=== PATIENT | male | born 1995 | race African-American/Black ===

== ENCOUNTER 2021-03-06 16:34 | Emergency (ER) | payer OTHER ==
[~2021-03-06] VITALS: Ht 170.2 cm; Wt 84.5 kg
[2021-03-06] MEDS ORDERED: IV NORMAL SALINE 1,000ML 1,000 ML IV ONE ×2 (16:45→18:00)
--- NOTE | 2021-03-06 16:52 | EKG ---
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
[2021-03-06] MEDS ORDERED: NEOMY/BACITR/POLYMYXIN OINT PACKET. TP ONE (17:15)
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
[2021-03-06 17:31] LABS: BASO % 0 % (0-3); EOS # 0.1 x10^3/uL (0.0-0.7); EOS % 1 % (0-3); HEMATOCRIT 40.8 % (39.0-53.0); HEMOGLOBIN 13.4 g/dL (13.0-17.5); LYMPH % 9 % (24-48); MEAN CORPUSCULAR HEMOGLOBIN 29 pg (25-35); MEAN CORPUSCULAR HGB CONC 33 g/dL (31-37); MEAN CORPUSCULAR VOLUME 88 fL (79-100); MONO # 0.6 x10^3/uL (0.0-1.1); MONO % 5 % (0-9); NEUT # 10.4 x10^3uL (1.8-7.7); NEUT % 86 % (31-73); PLATELET COUNT 238 x10^3/uL (140-400); RED BLOOD COUNT 4.66 x10^6/uL (4.30-5.70); RED CELL DISTRIBUTION WIDTH 12.9 % (11.5-14.5); WHITE BLOOD COUNT 12.2 x10^3/uL (4.0-11.0)
--- NOTE | 2021-03-06 17:33 | RAD ---
Study: XR HAND_RIGHT 3 VIEWS Indication: Pain. Comparison: None. Findings: Edematous soft tissues at the dorsum of the hand no acute fractures suspected chronic fracture deform ity of the fifth metacarpal. Maintained joint spaces. No gross malalignment at the hand or at the wrist. No retained radiopaque fo reign body. Impression: Edematous soft tissues seen at the dorsum of the hand overlying the metacarpals but no acute fracture is identified. Chronic deformity of the fifth metacarpal. No retained radiopaque foreign body. If th ere is ongoing concern follow-up radiograph could be obtained in 2 weeks. Electronically signed by: KANWAL ANDINO MD (03/06/2021 5:31 PM) [facility]
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
[2021-03-06 17:40] LABS: CALCIUM 8.6 mg/dL (8.5-10.1); CREATININE 1.5 mg/dL (0.7-1.3); GFR 69.6; MAGNESIUM 2.1 mg/dL (1.8-2.4); POTASSIUM 4.3 mmol/L (3.5-5.1)
[2021-03-06 17:45] LABS: BARBITURATES NEG (NEG); BENZODIAZEPINES NEG (NEG); CANNABINOIDS NEG (NEG); COCAINE NEG (NEG); METHADONE NEG (NEG); OPIATES NEG (NEG); PHENCYCLIDINE NEG (NEG)
[2021-03-06 17:46] LABS: AMPHETAMINE/METHAMPHETAMINE NEG (NEG)
[2021-03-06 18:16] VITALS: BP 117/62
[2021-03-06 21:48] LABS: % EOS 2 % (0-5); % LYMPHS 8 % (24-48); % MONOS 5 % (0-10); % SEGS 85 % (35-66); PLT ESTIMATE ADEQUATE (ADEQUATE)
== END 2021-03-06 18:59 | disposition home or self-care (01) ==
LOC: EEVIPCON 16:34 → ER 16:34
DX: S60.221A Contusion of right hand, initial encounter (principal); T65.891A Toxic effect of other specified substances, accidental (unintentional), initial encounter; R41.0 Disorientation, unspecified; E87.2 Acidosis; Y08.89XA Assault by other specified means, initial encounter; Y93.89 Activity, other specified; Y92.89 Other specified places as the place of occurrence of the external cause; Y99.8 Other external cause status
CPT/HCPCS: 36415; 70450; 72125; 73130; 80048; 80307; 83605; 83735; 85007; 85025; 93005; 96360; 99285; G0480; J7030